=== PATIENT | female | born 1965 | race Caucasian/White ===

== ENCOUNTER 2016-12-09 19:27 | Emergency (ER) | payer OTHER ==
[2016-12-09] MEDS ORDERED: TDAP ADULT 0.5 ML INJ (BOOSTRIX) IM ONE (19:47)
--- NOTE | 2016-12-09 20:12 | EDPHY ---
H & P Time Seen by Provider: 12/09/16 19:31 HPI/ROS: CHIEF COMPLAINT: left ring finger laceration HISTORY OF PRESENT ILLNESS: 51-year-old female presents emergency department after she snapped the tip of her left finger with gardening angela. Tetanus is not up-to-date. Patient is [id number], no other complaints. Smoking Status: Never smoked Physical Exam: GEN: Awake, alert, oriented, no acute distress, vital signs reviewed, patient refused temperature and blood pressure. RESP: nl resp effort MSK: Full active range of motion of left ring finger, 2 point discrimination intact SKIN: Small skin avulsion to very distal tip of ring finger, no fingernail involvement Constitutional: Initial Vital Signs Heart Rate 68 12/09/16 19:34 Respiratory Rate 16 12/09/16 19:34 O2 Sat (%) 96 12/09/16 19:34 O2 Delivery Mode Room Air O2 (L/minute) 36.8 Allergies/Adverse Reactions: naproxen [From Anaprox] Allergy (Verified 12/09/16 19:38) Home Medications: Medication Instructions Recorded Aspirin 81mg (*) 12/09/16 Synthroid 12/09/16 MDM/Departure - MDM Medications Given: Discontinued Medications Diphtheria/Tetanus/Acell Pertussis (Boostrix) 0.5 ml IM .ONCE ONE Stop: 12/09/16 19:48 Last Admin: 12/09/16 19:55 Dose: 0.5 ml - Depart Disposition: Home, Routine, Self-Care Clinical Impression: Avulsion of skin of finger without complication Qualifiers: Encounter type: initial encounter Qualified Code(s): S61.209A - Unspecified open wound of unspecified finger without damage to nail, initial encounter Condition: Good Instructions: Skin Avulsion (ED) Additional Instructions: Keep dressing clean and dry for 48-72 hours then you may remove and wash with soap and water daily, place antibiotic ointment and Band-Aid. Return to the emergency department for any signs of infection. Referrals: GISSELLE COOLEY [Other] - As per Instructions
[2016-12-09 20:34] VITALS: BP 141/74; PULSE 80; RESP 14; TEMP 98.4; O2SAT 94
== END 2016-12-09 20:33 | disposition home or self-care (01) ==
DX: S61.205A Unspecified open wound of left ring finger without damage to nail, initial encounter (principal); Z23 Encounter for immunization; Z79.82 Long term (current) use of aspirin; W26.8XXA Contact with other sharp object(s), not elsewhere classified, initial encounter; Y99.8 Other external cause status